=== PATIENT | female | born 1940 | race Caucasian/White ===

== ENCOUNTER 2016-11-22 08:23 | Day surgery (SDC) | payer OTHER ==
[2016-11-21 15:43] VITALS: BMI 27.2
[2016-11-22 09:02] LABS: INR 1.08 (0.82-1.09); PROTHROMBIN TIME (PATIENT) 11.9 SEC (9.98-11.88)
[2016-11-22 09:20] VITALS: TEMP 97.7
[2016-11-22 12:56] VITALS: BP 151/88; PULSE 71
== END 2016-11-22 12:50 | disposition home or self-care (01) ==
LOC: JRADIR 08:23
PROVIDERS: ATTEND Internal Medicine
PROC: 0BBJ3ZX Excision of Left Lower Lung Lobe, Percutaneous Approach, Diagnostic (ICD-10-PCS; principal; 2016-11-22)
DX: Z53.8 Procedure and treatment not carried out for other reasons (principal)
CPT/HCPCS: 36415; 85610

== ENCOUNTER 2018-04-30 14:48 | Emergency (ER) | payer OTHER ==
--- NOTE | 2018-04-30 14:57 | PDOC ---
Rapid Medical Evaluation Time Seen by Provider: 04/30/18 14:54 Medical Evaluation: Allergies Allergy/AdvReac Type Severity Reaction Status Date / Time No Known Allergies Allergy Verified 11/21/16 15:53 04/30/18 14:54 I have done a brief in-person assessment of this patient. The patient presents with a chief complaint of left leg pain intermittently x 10 days. States pain in thigh and down in calf. States taking diclofenac but pain is more frequent. Denies injury or fall Pertinent physical exam findings NAD even and unlabored breathing no swelling noted I have ordered the following: dupplex to left leg The patient will proceed to the Ed for further evaluation. 04/30/18 21:50 Dx: left leg pain Discharge Disposition - Diagnosis Leg pain, left - Discharge Dispostion Disposition: ELOPED - Referrals Referrals: Stephanie Martinez MD [Primary Care Provider] - - Patient Instructions - Post Discharge Activity
[2018-04-30] MEDS ORDERED: ACETAMINOPHEN 325 MG TABLET (FP) PO ONE (14:58)
[2018-04-30 14:59] VITALS: BP 105/48; PULSE 118; TEMP 97.2; BMI 26.6
[2018-04-30] MEDS ORDERED: morphine CARPU-JECT 4 MG/1 ML DISP.SYRIN IVPUSH ONE (18:06)
--- NOTE | 2018-04-30 18:30 | PDOC ---
History of Present Illness - General Chief Complaint: Pain, Acute Stated Complaint: LT LEG PAIN Time Seen by Provider: 04/30/18 14:54 History Source: Patient - History of Present Illness Occurred: reports: other Severity: Yes: severe Lower Extremity Pain Location: left: leg Past History - Past Medical History Allergies/Adverse Reactions: Allergies Allergy/AdvReac Type Severity Reaction Status Date / Time No Known Allergies Allergy Verified 11/21/16 15:53 Home Medications: Ambulatory Orders Atorvastatin Ca [Lipitor] 10 mg PO HS 11/21/16 Cholecalciferol (Vitamin D3) [Vitamin D3 -] 1,000 unit PO HS 11/21/16 Aspirin [ASA -] 1 tab PO DAILY 10/02/17 Bupropion HCl [Bupropion HCl Sr] 1 tab PO DAILY 10/02/17 Hydrochlorothiazide 1 tab PO DAILY 10/02/17 Naproxen [Naprosyn] 1 tab PO BID 10/02/17 Valsartan 1 tab PO DAILY 10/02/17 HTN: Yes Hypercholesterolemia: Yes - Surgical History Abdominal Surgery: Yes Appendectomy: Yes - Immunization History Immunization Up to Date: Yes - Suicide/Smoking/Psychosocial Hx Smoking History: Never smoked Have you smoked in the past 12 months: Yes Number of Cigarettes Smoked Daily: 5 Information on smoking cessation initiated: No 'Breaking Loose' booklet given: 11/22/16 Hx Alcohol Use: No Drug/Substance Use Hx: No Substance Use Type: Alcohol Hx Substance Use Treatment: No Review of Systems - Review of Systems Constitutional: No: Chills, Fever Respiratory: No: Shortness of Breath Cardiac (ROS): No: Chest Pain, Palpitations *Physical Exam - Vital Signs Last Vital Signs Temp Pulse Resp BP Pulse Ox 97.2 F L 118 H 20 105/48 L 100 04/30/18 14:54 04/30/18 14:54 04/30/18 14:54 04/30/18 14:54 04/30/18 14:54 - Physical Exam General Appearance: Yes: Appropriately Dressed, Moderate Distress HEENT: positive: Normal Voice Respiratory/Chest: positive: Lungs Clear, Normal Breath Sounds. negative: Respiratory Distress Cardiovascular: positive: Regular Rate, S1, S2 Extremity: positive: Other (L foot cool to touch compared to R w/ ?pallor to plantar aspect, no erythema, unable to palate pedal pulses b/ l) Moderate Sedation - Procedure Monitoring Vital Signs: Procedure Monitoring Vital Signs Temperature 97.2 F L 04/30/18 14:54 Pulse Rate 118 H 04/30/18 14:54 Respiratory Rate 20 04/30/18 14:54 Blood Pressure 105/48 L 04/30/18 14:54 O2 Sat by Pulse Oximetry (%) 100 04/30/18 14:54 ED Treatment Course - RADIOLOGY Radiology Studies Ordered: Category Date Time Status DUPLEX ART. LEGS- LIMITED US [US] Stat Ultrasound 04/30/18 18:05 Ordered - Medications Given in the ED: ED Medications Discontinued Medications Generic Name Dose Route Start Last Admin Trade Name Freq PRN Reason Stop Dose Admin Acetaminophen 650 mg 04/30/18 14:58 04/30/18 15:01 Tylenol - PO 04/30/18 14:59 650 mg ONCE ONE Administration Medical Decision Making - Medical Decision Making 04/30/18 18:29 77-year-old female, history of lung cancer, s/p chemo/xrt, recently quit smoking after 14-vcsj-aapy history, here w/ severe LLE pain x several days. No recent trauma. Is able to ambulate but painful. Per family, patient has had this pain intermittently for 7 months. Was seen by of vascular last year and the plan was to get b/l ultrasounds and follow-up. For unclear reasons , patient was lost to follow-up. As per daughter, patient now has an appointment with to be seen next week. Patient denies any fever or chills. Taking NSAIDs at this time with no relief . No CP/palp/sob. See exam Acute on chronic LLE Concern for PVD, no e/o infection Tachy at triage to 118 but not on my exam, will rpt once pain is controlled -pain control -labs -art US -US vasc done and read as neg for DVT -will discuss dispo w/ of vasc 04/30/18 18:42 Case d/w who agrees with labs and arterial ultrasound. States if no sig hemodynamic stenosis, patient can be discharged with pain control and follow -up at schedule appointment 04/30/18 18:51 Pt signed out to LUCIA Ferraro at this time *DC/Admit/Observation/Transfer Diagnosis at time of Disposition: Leg pain, left - Discharge Dispostion Disposition: ELOPED - Referrals Referrals: Stephanie Martinez MD [Primary Care Provider] - - Patient Instructions - Post Discharge Activity
--- NOTE | 2018-04-30 19:25 | PDOC ---
*Physical Exam - Vital Signs Last Vital Signs Temp Pulse Resp BP Pulse Ox 97.2 F L 118 H 20 105/48 L 100 04/30/18 14:54 04/30/18 14:54 04/30/18 14:54 04/30/18 14:54 04/30/18 14:54 ED Treatment Course - Medications Given in the ED: ED Medications Discontinued Medications Generic Name Dose Route Start Last Admin Trade Name Freq PRN Reason Stop Dose Admin Acetaminophen 650 mg 04/30/18 14:58 04/30/18 15:01 Tylenol - PO 04/30/18 14:59 650 mg ONCE ONE Administration Medical Decision Making - Medical Decision Making 04/30/18 21:17 patient eloped priot to my evaluation. called patient at home. patient family member reports that she left the ER *DC/Admit/Observation/Transfer Diagnosis at time of Disposition: Leg pain, left - Discharge Dispostion Disposition: ELOPED - Referrals Referrals: Stephanie Martinez MD [Primary Care Provider] - - Patient Instructions - Post Discharge Activity
== END 2018-04-30 21:18 | disposition left against medical advice (07) ==
LOC: JER 14:48
DX: M79.605 Pain in left leg (principal); E78.00 Pure hypercholesterolemia, unspecified; I10 Essential (primary) hypertension; Z72.0 Tobacco use
CPT/HCPCS: 93971-TC; 99281-25

== ENCOUNTER 2025-01-14 11:18 | Emergency (ER) | payer OTHER ==
[2025-01-14] MEDS ORDERED: IBUPROFEN 400 MG TABLET (FP) PO ONE (12:43)
[2025-01-14] MEDS: IBUPROFEN 400 MG TABLET (FP) PO ONE (12:46)
[2025-01-14 12:57] VITALS: BP 126/44; PULSE 84; RESP 16; TEMP 98.5; BMI 31.7
== END 2025-01-14 16:01 | disposition home or self-care (01) ==
LOC: JER 11:18
DX: M25.562 Pain in left knee (principal); M25.462 Effusion, left knee
CPT/HCPCS: 73562-TC-LT-FY; 93971-TC-RT; 99284-25